=== PATIENT | female | born 1950 | race Caucasian/White ===

== ENCOUNTER 2019-04-24 20:41 | Inpatient (IN) | payer MEDICARE, OTHER, SELFPAY ==
[2019-04-24] VITALS (11 sets, daily range): BP systolic 132–156; BP diastolic 67–87; PULSE 70–94; RESP 17–28; TEMP 36.6–36.8; O2SAT 96–100
--- NOTE | 2019-04-24 20:46 | ED.GENADULT ---
HPI - General Adult General Chief complaint: GI Bleed Stated complaint: rectal bleed Time Seen by Provider: 04/24/19 20:51 Source: patient Mode of arrival: EMS Limitations: no limitations History of Present Illness HPI narrative: A 69 y/o female presents to the ED, via EMS, with c/o rectal bleeding. Pt states that she had a colonoscopy today at [address] Puente. She adds that she had 12 polyps removed during the procedure. Pt notes that after her colonoscopy she ate lunch and took a 6 hour nap. When the patient woke up tonight, she went to go to the bathroom and noticed she had filled her depends with blood and left a trail from her bed to her toilet. She states that there was approximately 50 tablespoons of blood on the floor. Pt has a PMHx of COPD and home O2. She denies ABD pain, fever, chills, and N/V. Pt did not take any medication prior to her ED visit. MD complaint: Rectal bleeding Onset (ago): hour(s) (Tonight) Associated symptoms: denies other symptoms Treatments prior to arrival: none Related Data Home Medications Medication Instructions Recorded Confirmed nicotine 10 mg inhalation cartridge 1 inhalation INHALATION 4-6XD PRN 02/20/19 04/24/19 tramadol 50 mg tablet 50 mg PO TID PRN tablet 02/20/19 04/18/19 escitalopram oxalate 20 mg PO DAILY 04/18/19 04/18/19 fluticasone propionate 2 spray NASAL DAILY 04/18/19 04/18/19 [id number]-[id number] 1 inh INHALATION DAILY 04/18/19 04/18/19 [Trelegy Ellipta] Allergies Allergy/AdvReac Type Severity Reaction Status Date / Time naproxen Allergy Severe can't take Verified 04/24/19 07:14 due to medical condition aspirin Allergy Unknown due to Verified 04/24/19 07:14 medical condition venlafaxine Allergy Unknown unknown Verified 04/24/19 07:14 Review of Systems Review of Systems: All systems reviewed & are unremarkable except as noted in HPI and below Constitutional: Constitutional: Denies chills and Denies fever(s) Gastrointestinal: Gastrointestinal: Denies abdominal pain, Denies nausea, Denies vomiting and Reports other (Rectal bleeding) [facility] Past Medical History Medical History (Updated 04/24/19 @ 22:51 by Clemente Braxton MD) Acquired hypothyroidism Adenomatous colon polyp Allergic rhinitis Chronic diastolic congestive heart failure Chronic hypoxemic respiratory failure Chronic obstructive pulmonary disease, unspecified Chronic respiratory failure with hypercapnia Chronic respiratory failure with hypoxia Compliance poor Constipation by delayed colonic transit Difficulty in walking, not elsewhere classified Diverticulitis SAKSHI (generalized anxiety disorder) History of tobacco abuse IFG (impaired fasting glucose) MDD (major depressive disorder), recurrent episode, moderate Mixed hyperlipidemia Morbid (severe) obesity due to excess calories Obstructive sleep apnea (adult) (pediatric) Physical debility Supplemental oxygen dependent Urge incontinence of urine Vascular dementia without behavioral disturbance Surgical History Surgical History (Updated 04/24/19 @ 22:51 by Clemente Braxton MD) History of arthroplasty of left knee History of colonoscopy History of rectal polypectomy Family History Family History Mother Family history of premature coronary heart disease, Onset Age: 79 Patient's mother is Family history of emphysema Father Family history of premature coronary heart disease, Onset Age: 79 Family history of diabetes mellitus in first degree relative Patient's father is Sibling Family history of cardiac disorder Other Asthma Depression Diabetes mellitus Family history of alcoholism Family history of heart disease in male family member before age 55 Family history of malignant melanoma Hypertension Social History Social History Smoking status: Former smoker [facility]
[2019-04-24 21:25] LABS: Basophils Absolute Auto 0.1 K/mm3 (0.0-0.1); Basophils Percent Auto 0.7 % (0.2-1.2); Eosinophils Absolute Auto 0.1 K/mm3 (0-0.3); Eosinophils Percent Auto 1.5 % (0-4.4); Hematocrit 47.5 % (37.0-47.0); Immature Granulocyte Absolute 0.02 K/mm3 (0.00-0.031); Immature Granulocyte Percent A 0.3 % (0-0.5); Lymphocytes Absolute Auto 1.02 K/mm3 (0.9-3.2); Lymphocytes Percent Auto 13.7 % (18.3-44.2); Mean Corpuscular HGB Conc 29.5 g/dl (32-36); Mean Corpuscular Hemoglobin 26.4 pg (26-34); Mean Corpuscular Volume 89.6 fl (80-100); Mean Platelet Volume 10.1 fl (7.4-10.4); Monocytes Absolute Auto 0.3 K/mm3 (0.1-0.6); Monocytes Percent Auto 3.5 % (2.6-8.5); Neutrophils Percent Auto 80.3 % (45.5-73.1); Platelet Count Result 280 k/mm3 (150-375); Red Cell Distribution Width 13.9 % (11.5-14.5); White Blood Count 7.4 K/mm3 (4.5-10.0)
[2019-04-24 21:33] LABS: Hypochromasia 1+ (NORMAL); Platelet Estimate Adequate (Adequate)
[2019-04-24 21:37] LABS: Alanine Aminotransferase 22 U/L (4-35); Albumin Level 4.7 g/dL (3.5-5.1); Alkaline Phosphatase 116 U/L (38-126); Aspartate Amino Transferase 35 U/L (14-36); Bilirubin,Total 0.5 mg/dL (0.2-1.3); Blood Urea Nitrogen 13 mg/dL (7-17); Calcium 9.4 mg/dL (8.4-10.2); Carbon Dioxide 37 mmol/L (22-30); Chloride 93 mmol/L (98-107); Estimated CRCL calculation 47 ml/min; Estimated Glomerular Filt Rate 50; Glucose 140 mg/dL (65-105); Potassium 3.6 mmol/L (3.4-5.0); Sodium 138 mmol/L (137-145)
[2019-04-24] MEDS: SODIUM CHLORIDE 0.9% IV 1,000 ML 999 ML IV CONT (21:50)
--- NOTE | 2019-04-24 23:00 | ADMGEN ---
This patient, Candida Luz, was admitted to Medical Room 345-. Patient/family oriented to hospital policies and general routines including ID bracelet, bed and alarms, visiting hours, pain management, procedures, bathroom and other care routines, personal items, smoking policy, room service/diet, and visiting hours. Valuables list has been completed. Information on how to activate the Rapid Response Team has been discussed. Patient/Family are encouraged to report perceived risks to care and to ask questions if they do not understand what they are told or what they should do.
[2019-04-24 23:37] LABS: Hematocrit 44.3 % (37.0-47.0); Hemoglobin 13.1 g/dL (12.0-15.0)
--- NOTE | 2019-04-24 23:37 | PM.IMHP ---
H&P: HPI History of Present Illness Chief complaint: RECTAL BLEEDING STATUS POST COLONIC POLYPECTOMY Narrative: This is a 69 year old female with known COPD and chronic respiratory failure on home oxygen therapy who presented to the hospital [facility] with a complaint of bright red rectal bleeding. The patient just had a colonoscopy this morning and had 12 polyps removed. Immediately after the procedure she had no issues and went home. She took a nap and woke up and immediately had painless bright red rectal bleeding. She denies using any anticoagulants. She also denies any chest pain, worsening shortness of breath, lightheadedness, syncope, or other symptoms. She denies any fever or chills. She had not had any abdominal discomfort. The patient was evaluated in the ER [facility] and routine labs were obtained which were unremarkable. Her rectal bleeding has subsided and she is currently asymptomatic. The patient's vital signs have been stable. ER provider consulted the patient's lambskin trimmer, Dr. Puente who has asked that we admit his patient for observation overnight. No other complaints. Review of Systems Review of Systems: All systems reviewed & are unremarkable except as noted in HPI and below PMFSH Past Medical History Medical History Acquired hypothyroidism Adenomatous colon polyp Allergic rhinitis Chronic diastolic congestive heart failure Chronic hypoxemic respiratory failure Chronic obstructive pulmonary disease, unspecified Chronic respiratory failure with hypercapnia Chronic respiratory failure with hypoxia Compliance poor Constipation by delayed colonic transit Difficulty in walking, not elsewhere classified Diverticulitis SAKSHI (generalized anxiety disorder) History of tobacco abuse IFG (impaired fasting glucose) MDD (major depressive disorder), recurrent episode, moderate Mixed hyperlipidemia Morbid (severe) obesity due to excess calories Obstructive sleep apnea (adult) (pediatric) Physical debility Supplemental oxygen dependent Urge incontinence of urine Vascular dementia without behavioral disturbance Surgical History Surgical History History of arthroplasty of left knee History of colonoscopy History of rectal polypectomy Family History Family History Mother Family history of premature coronary heart disease, Onset Age: 79 Patient's mother is Family history of emphysema Father Family history of premature coronary heart disease, Onset Age: 79 Family history of diabetes mellitus in first degree relative Patient's father is Sibling Family history of cardiac disorder Other Asthma Depression Diabetes mellitus Family history of alcoholism Family history of heart disease in male family member before age 55 Family history of malignant melanoma Hypertension Social History Social History Smoking status: Former smoker Second hand tobacco smoke exposure: No Smoking end date: 04/04/11 Alcohol intake: never Substance use: never Substance use type: does not use Gender identity (if verbalized by the patient): Female Meds Home Medications and Allergies Home Medications Medication Instructions Recorded Confirmed Type albuterol sulfate 90 mcg/actuation 2 puff INHALATION Q4H PRN #8.5 gm 02/20/19 04/24/19 Rx aerosol inhaler atorvastatin 10 mg tablet 10 mg PO DAILY #90 tablet 02/20/19 04/24/19 Rx furosemide 20 mg tablet 20 mg PO BID #180 tablet 02/20/19 04/18/19 Rx levothyroxine 150 mcg tablet 150 mcg PO DAILY #90 tablet 02/20/19 04/18/19 Rx nicotine 10 mg inhalation cartridge 1 inhalation INHALATION 4-6XD PRN 02/20/19 04/24/19 History potassium chloride 20 mEq 20 meq PO QID #360 tablet 02/20/19 04/18/19 Rx tablet,extended release(p
[2019-04-25] VITALS (12 sets, daily range): BP systolic 132–163; BP diastolic 67–78; PULSE 62–79; RESP 16–20; TEMP 36.1–36.4; O2SAT 97–100; BMI 39.6
[2019-04-25] MEDS: LACTATED RINGERS 1,000 ML 125 ML IV CONT ×3 (00:29→17:55)
[2019-04-25 06:12] LABS: Basophils Percent Auto 0.6 % (0.2-1.2); Eosinophils Absolute Auto 0.1 K/mm3 (0-0.3); Eosinophils Percent Auto 1.8 % (0-4.4); Hematocrit 39.7 % (37.0-47.0); Hemoglobin 11.7 g/dL (12.0-15.0); Immature Granulocyte Absolute 0.02 K/mm3 (0.00-0.031); Immature Granulocyte Percent A 0.3 % (0-0.5); Lymphocytes Absolute Auto 1.26 K/mm3 (0.9-3.2); Lymphocytes Percent Auto 18.7 % (18.3-44.2); Mean Corpuscular HGB Conc 29.5 g/dl (32-36); Mean Corpuscular Hemoglobin 26.6 pg (26-34); Mean Corpuscular Volume 90.2 fl (80-100); Mean Platelet Volume 10.2 fl (7.4-10.4); Monocytes Absolute Auto 0.4 K/mm3 (0.1-0.6); Monocytes Percent Auto 5.5 % (2.6-8.5); Neutrophils Absolute Auto 4.9 K/mm3 (1.3-6.7); Neutrophils Percent Auto 73.1 % (45.5-73.1); Platelet Count Result 227 k/mm3 (150-375); Red Cell Distribution Width 13.9 % (11.5-14.5); White Blood Count 6.8 K/mm3 (4.5-10.0)
[2019-04-25 06:28] LABS: Blood Urea Nitrogen 11 mg/dL (7-17); Calcium 8.6 mg/dL (8.4-10.2); Carbon Dioxide 32 mmol/L (22-30); Chloride 101 mmol/L (98-107); Estimated CRCL calculation 53 ml/min; Estimated Glomerular Filt Rate 55; Glucose 86 mg/dL (65-105); Potassium 3.7 mmol/L (3.4-5.0); Sodium 140 mmol/L (137-145)
[2019-04-25] MEDS: LEVOTHYROXINE SODIUM 150 MCG TABLET PO (06:55)
[2019-04-25 07:15] LABS: Hypochromasia 2+ (NORMAL); Platelet Estimate Adequate (Adequate)
[2019-04-25] MEDS: ESCITALOPRAM OXALATE 5 MG TABLET PO (08:44)
[2019-04-25] MEDS: POTASSIUM CHLORIDE 20 MEQ TABLET.ER PO ×4 (08:44→20:00)
[2019-04-25] MEDS: ATORVASTATIN 10 MG TABLET PO (08:44)
[2019-04-25] MEDS: ESCITALOPRAM OXALATE 10 MG TABLET PO (08:44)
[2019-04-25] MEDS: MONTELUKAST SODIUM 10 MG TABLET PO (08:45)
[2019-04-25] MEDS: FUROSEMIDE 20 MG TABLET PO ×2 (08:45→16:27)
[2019-04-25] MEDS: FLUTICASONE PROPIONATE 0.05% NA SPR 16 GM BTL (*BKC) 2 SPRAY NASAL (08:45)
[2019-04-25 11:27] LABS: Hematocrit 38.2 % (37.0-47.0); Hemoglobin 11.4 g/dL (12.0-15.0)
[2019-04-25 13:14] LABS: Glucose Point of Care 110 (65-105)
--- NOTE | 2019-04-25 14:53 | WPDGICN ---
Assessment and Plan Assessment and plan (1) Bright red rectal bleeding: Code(s): K62.5 - Hemorrhage of anus and rectum Status: Acute Assessment and Plan: post-polypectomy bleeding after several polyps removed yesterday with drop in hb. No more bleeding last few hours, will monitor in the hospital with npo after midnight, also give dulcolax with mag citrate tomorrow in the morning- if no significant bleeding then no need to repeat colonoscopy and will continue with supportive care but if she has more clots and ongoing bleeding with worsening anemia then may need to proceed with colonoscopy tomorrow to assess for potential site of bleeding. (2) Status post colonoscopy with polypectomy: Code(s): Z98.890 - Other specified postprocedural states Status: Acute (3) Adenomatous colon polyp: Qualifiers: Colon location: unspecified part of colon Qualified Code(s): D12.6 - Benign neoplasm of colon, unspecified Code(s): D12.6 - Benign neoplasm of colon, unspecified Status: Acute (4) Chronic respiratory failure with hypoxia: Code(s): J96.11 - Chronic respiratory failure with hypoxia Status: Chronic Assessment and Plan: on oxygen, stable. (5) Obstructive sleep apnea (adult) (pediatric): Code(s): G47.33 - Obstructive sleep apnea (adult) (pediatric) Status: Acute (6) Acute blood loss anemia: Code(s): D62 - Acute posthemorrhagic anemia Status: Acute GI Consult Note Consult date/time: 04/25/19 14:53 re: rectal bleeding HPI: Candida Luz is a 69 year old female with history of COPD, chronic respiratory failure on home oxygen, diverticulitis who came with rectal bleeding. I performed yesterday a colonoscopy, found left side diverticulosis without inflammation and removed 12 adenomatous polyps, ranging in size 5-20mm using hot snare for the largest ones (I use eleview in one flat polyp for the purpose of lifting and prevent perforation), did not see any immediate bleeding and she went home after recovery. Last night she had 2 episodes of large amount of rectal bleeding, no abdominal pain, no fever therefore she came to ED and admitted to hospital. Hb 13.1 and this morning 11.4. She is hemodynamic stable, no more bleeding today. Review of Systems Constitutional: Constitutional: Denies headache(s) and Denies weakness Eyes: Eyes: Denies blurry vision ENT: Reports Normal hearing present, Denies headache(s) and Denies neck pain Cardiovascular: Cardiovascular: Denies chest pain and Denies dyspnea Respiratory: Respiratory: Reports dyspnea (home oxygen) Gastrointestinal: Gastrointestinal: Reports no additional gastrointestinal complaints Genitourinary: Genitourinary: Denies dysuria Musculoskeletal: Musculoskeletal: Denies neck pain Integumentary/Breasts: Skin/Breast: Denies dry skin Neurologic: Reports Normal hearing present, Denies headache(s) and Denies weakness Psychiatric: Psychiatric: Denies anxiety Endocrine: Endocrine: Denies change in body appearance Hematologic/Lymphatic: Hematologic/Lymphatic: Denies easy bleeding Allergic/Immunologic: Allergic/Immunologic: Denies urticaria PMFSH Past Medical History Medical History Acquired hypothyroidism Adenomatous colon polyp Allergic rhinitis Chronic diastolic congestive heart failure Chronic hypoxemic respiratory failure Chronic obstructive pulmonary disease, unspecified Chronic respiratory failure with hypercapnia Chronic respiratory failure with hypoxia Compliance poor Constipation by delayed colonic transit Difficulty in walking, not elsewhere classified Diverticulitis SAKSHI (generalized anxiety disorder) History of tobacco abuse IFG (impaired fasting glucose) MDD (major depressive disorder), recurrent episode, moderate Mixed hyperlipidemia Morbid (severe) obesity due to excess calories Obstructive sleep apnea (adult) (pediatric)
[2019-04-25 17:17] LABS: Hematocrit 40.6 % (37.0-47.0); Hemoglobin 12.1 g/dL (12.0-15.0)
[2019-04-25] MEDS: BISACODYL 5 MG TABLET EC 20 MG PO (17:56)
--- NOTE | 2019-04-25 18:52 | PHAR ---
Nicotrol Inhaler (nicotine inhalation system) 10 mg/cartridge (4 mg delivered) Saw in Pharmacy and sent back to the floor.
--- NOTE | 2019-04-25 20:15 | PM.IMPN ---
Progress Note: A&P Assessment and Plan (1) Bright red rectal bleeding: Code(s): K62.5 - Hemorrhage of anus and rectum Status: Acute Assessment and Plan: -----Hgb is stable and bleeding has stopped. Plan to monitor overnight and hopefully discharge in the morning if stable. (2) Status post colonoscopy with polypectomy: Code(s): Z98.890 - Other specified postprocedural states Status: Acute Assessment and Plan: -----procedure 04/25/19 and pt is doing well. (3) Chronic respiratory failure with hypoxia: Code(s): J96.11 - Chronic respiratory failure with hypoxia Status: Chronic Assessment and Plan: -----Continue home oxygen therapy, bronchodilators and Bipap. (4) Mixed hyperlipidemia: Code(s): E78.2 - Mixed hyperlipidemia Status: Chronic Assessment and Plan: ------Continue statin therapy. (5) Chronic diastolic congestive heart failure: Code(s): I50.32 - Chronic diastolic (congestive) heart failure Status: Chronic Assessment and Plan: -----Currently compensated. Monitor fluid status. Continue home meds. (6) Acquired hypothyroidism: Code(s): E03.9 - Hypothyroidism, unspecified Status: Chronic Assessment and Plan: -----Continue levothyroxine. Time Spent With Patient Time with patient: 25 - 35 minutes Subjective Date/time seen: 04/25/19 20:15 Interval history: Pt is a 69 y/o female here for BRBPR. Pt had a BM today which had black flakes but no significant blood. she is feeling a little shaking but thinks its because she hasn't eaten for awhile since her colonoscopy. She denies CP, lightheadedness, fevers, chills, abdominal pain, or leg swelling. Review of Systems Review of Systems: All systems reviewed & are unremarkable except as noted in HPI and below Exam Narrative: Exam Narrative: General: Well developed well nourished patient resting in the chair in NAD HEENT: normocephalic Neck: supple Neuro: Alert and oriented x4 CV:RRR Resp:CTA Abd: Soft, non distended. No pain to palpation. Positive bowel sounds Extremities: No swelling, erythema, or pain to palpation. Objective Data Vital Signs Vital Signs: Vital Signs - 24 hr 04/24/19 20:45 04/24/19 22:22 04/24/19 22:30 Temperature 98.3 F Pulse Rate 94 79 77 Respiratory Rate 18 19 21 H Blood Pressure 156/87 H Pulse Oximetry 96 04/24/19 22:45 04/24/19 22:46 04/24/19 23:00 Temperature Pulse Rate 71 70 73 Respiratory Rate 25 H 18 19 Blood Pressure 132/67 Pulse Oximetry 100 100 98 04/24/19 23:15 04/24/19 23:30 04/24/19 23:33 Temperature Pulse Rate 78 86 77 Respiratory Rate 27 H 17 25 H Blood Pressure 144/75 H Pulse Oximetry 100 100 100 04/24/19 23:45 04/24/19 23:53 04/25/19 00:12 Temperature 97.9 F 97.1 F L Pulse Rate 71 76 73 Respiratory Rate 28 H 25 H 20 Blood Pressure 144/75 H 163/68 H Pulse Oximetry 100 100 99 04/25/19 00:58 04/25/19 04:00 04/25/19 06:00 Temperature 97.0 F L Pulse Rate 74 62 72 Respiratory Rate 18 Blood Pressure 149/67 H Pulse Oximetry 99 04/25/19 08:00 04/25/19 09:00 04/25/19 12:00 Temperature Pulse Rate 73 67 Respiratory Rate Blood Pressure Pulse Oximetry 97 04/25/19 14:00 04/25/19 16:00 Temperature 97.6 F Pulse Rate 74 76 Respiratory Rate 20 Blood Pressure 132/78 Pulse Oximetry 98 Intake/Output Intake/Output: Intake & Output 04/22/19 04/23/19 04/24/19 04/25/19 23:59 23:59 23:59 23:59 Intake Total 1000 3090 Output Total 1200 Balance 1000 1890 Meds/Results Medications: Active Medications Generic Name Dose Route Start Last Admin Trade Name Freq PRN Reason Stop Dose Admin Albuterol 2 puff 04/25/19 01:25 Proventil Hfa INHALATION Q4HRT PRN SOB/wheeze Atorvastatin Calcium 10 mg 04/25/19 09:00 04/25/19 08:44 Lipitor PO 10 mg DAILY AKIL Administ
[2019-04-26] VITALS: PULSE 94
[2019-04-26] MEDS: LACTATED RINGERS 1,000 ML 125 ML IV CONT (02:06)
[2019-04-26 04:00] VITALS: PULSE 57
[2019-04-26] MEDS: MAGNESIUM CITRATE 300 ML BTL PO (04:46)
[2019-04-26 06:00] VITALS: BP 127/72; PULSE 89; RESP 18; TEMP 36.2; O2SAT 100
[2019-04-26] MEDS: LEVOTHYROXINE SODIUM 150 MCG TABLET PO (06:13)
[2019-04-26 06:17] LABS: Hematocrit 47.5 % (37.0-47.0); Hemoglobin 13.9 g/dL (12.0-15.0)
[2019-04-26 07:55] VITALS: O2SAT 99
[2019-04-26 08:00] VITALS: PULSE 90
[2019-04-26] MEDS: FLUTICASONE PROPIONATE 0.05% NA SPR 16 GM BTL (*BKC) 2 SPRAY NASAL (08:39)
[2019-04-26] MEDS: MONTELUKAST SODIUM 10 MG TABLET PO (08:39)
--- NOTE | 2019-04-26 08:39 | WPDGIPROGNO ---
Progress Note: A&P Assessment and Plan (1) Bright red rectal bleeding: Code(s): K62.5 - Hemorrhage of anus and rectum Status: Acute Assessment and Plan: had a BM wihout more blood and normal Hb. Ok to start regular diet and she can go home. (2) Status post colonoscopy with polypectomy: Code(s): Z98.890 - Other specified postprocedural states Status: Acute Assessment and Plan: she will need colonoscopy in 1 year because several large polyps found. (3) Constipation by delayed colonic transit: Code(s): K59.01 - Slow transit constipation Status: Acute (4) Adenomatous colon polyp: Qualifiers: Colon location: unspecified part of colon Qualified Code(s): D12.6 - Benign neoplasm of colon, unspecified Code(s): D12.6 - Benign neoplasm of colon, unspecified Status: Acute (5) Chronic respiratory failure with hypoxia: Code(s): J96.11 - Chronic respiratory failure with hypoxia Status: Chronic Subjective Date/time seen: 04/26/19 08:39 Interval history: no more bleeding, had a BM after given Mag citrate. Also normal Hb Review of Systems Constitutional: Constitutional: Denies headache(s) and Denies weakness Eyes: Eyes: Denies blurry vision ENT: Reports Normal hearing present, Denies headache(s) and Denies neck pain Cardiovascular: Cardiovascular: Denies chest pain and Denies dyspnea Respiratory: Respiratory: Denies dyspnea Gastrointestinal: Gastrointestinal: Reports no additional gastrointestinal complaints Genitourinary: Genitourinary: Denies dysuria Musculoskeletal: Musculoskeletal: Denies neck pain Integumentary/Breasts: Skin/Breast: Denies dry skin Neurologic: Reports Normal hearing present, Denies headache(s) and Denies weakness Psychiatric: Psychiatric: Denies anxiety Endocrine: Endocrine: Denies change in body appearance Hematologic/Lymphatic: Hematologic/Lymphatic: Denies easy bleeding Allergic/Immunologic: Allergic/Immunologic: Denies urticaria Exam Const: General: comfortable and no acute distress HENMT: General nose exam: Normal nares present Eyes: General: appearance normal, both eyes and all related structures Neck: Neck: no JVD Resp: Auscultation: clear to auscultation bilaterally Other: using oxygen Cardio: Rate: regular rate Rhythm: regular rhythm GI: Inspection: non-distended GI Palp: Yes Soft to palpation and No Tenderness to palpation present (GI) Auscultation: normal bowel sounds Other: umbilical hernia Skin: General skin exam: normal color Neuro: General: gait normal Speech: normal speech Extrem: General: normal to inspection Psych: Mental Status: mental status grossly normal Objective Data Vital Signs Vital Signs: Vital Signs - 24 hr 04/25/19 09:00 04/25/19 12:00 04/25/19 14:00 Temperature 97.6 F Pulse Rate 67 74 Respiratory Rate 20 Blood Pressure 132/78 Pulse Oximetry 97 98 04/25/19 16:00 04/25/19 20:00 04/25/19 22:00 Temperature 97.0 F L Pulse Rate 76 79 64 Respiratory Rate 16 Blood Pressure 153/72 H Pulse Oximetry 100 04/25/19 23:05 04/26/19 00:00 04/26/19 04:00 Temperature Pulse Rate 94 57 L Respiratory Rate Blood Pressure Pulse Oximetry 97 04/26/19 06:00 04/26/19 07:55 04/26/19 08:00 Temperature 97.1 F L Pulse Rate 89 90 Respiratory Rate 18 Blood Pressure 127/72 Pulse Oximetry 100 99 Intake/Output Intake/Output: Intake & Output 04/23/19 04/24/19 04/25/19 04/26/19 23:59 23:59 23:59 23:59 Intake Total 1000 3090 1703 Output Total 1200 Balance 1000 1890 1703 Meds/Results Medications: Active Medications Generic Name Dose Route Start Last Admin Trade Name Freq PRN Reason Stop Dose Admin Albuterol 2 puff 04/25/19 01:25 Proventil Hfa INHALATION Q4HRT PRN SOB/wheeze Atorvastatin Calcium 10 mg 04/25/19 09:00 04/25/19 08:44 Lipitor PO 10 mg DAILY AKIL Adminis
[2019-04-26] MEDS: ATORVASTATIN 10 MG TABLET PO (08:40)
[2019-04-26] MEDS: POTASSIUM CHLORIDE 20 MEQ TABLET.ER PO (08:40)
[2019-04-26] MEDS: ESCITALOPRAM OXALATE 5 MG TABLET PO (08:40)
[2019-04-26] MEDS: FUROSEMIDE 20 MG TABLET PO (08:40)
[2019-04-26] MEDS: ESCITALOPRAM OXALATE 10 MG TABLET PO (08:40)
--- NOTE | 2019-04-26 10:22 | PM.DS ---
DS: Diagnosis Admitting Diagnosis Admitting Diagnosis: Hemorrhage of anus and rectum Discharge Diagnosis (1) Bright red rectal bleeding: Code(s): K62.5 - Hemorrhage of anus and rectum Status: Acute (2) Status post colonoscopy with polypectomy: Code(s): Z98.890 - Other specified postprocedural states Status: Acute (3) Chronic respiratory failure with hypoxia: Code(s): J96.11 - Chronic respiratory failure with hypoxia Status: Chronic (4) Mixed hyperlipidemia: Code(s): E78.2 - Mixed hyperlipidemia Status: Chronic (5) Chronic diastolic congestive heart failure: Code(s): I50.32 - Chronic diastolic (congestive) heart failure Status: Chronic (6) Acquired hypothyroidism: Code(s): E03.9 - Hypothyroidism, unspecified Status: Chronic DS: Summary Hospital Course Reason for hospitalization: Blood per rectum post colonoscopy Hospital Course: Patient is a 69-year-old female who had an outpatient colonoscopy without any complications but did have many polyps removed. She left from a colonoscopy and went home and was having some blood per rectum and decided to come back to emergency room. Vitals in the ER were stable. Initial hemoglobin 14.0. Patient was admitted to the hospitalist service for observation. The next day she had some blood per rectum but serial H&Hs remained stable. Hemoglobin was 13.9 and she did not require any blood products. She saw Dr. Puente, the 1 who did her colonoscopy, and he said she was ready for discharge. The patient was educated about the worrisome signs and symptoms come back to emergency room for was discharged in stable condition. Status at Discharge Overall status at discharge: patient is back to baseline Time Spent with Patient Time attestation: Total time spent providing and/or coordinating discharge services: 32 minutes Time spent: Greater than 30 minutes Exam Narrative: Exam Narrative: General: Well developed well nourished patient resting in the chair in NAD HEENT: normocephalic Neck: supple Neuro: Alert and oriented x4 CV:RRR Resp:CTA Abd: Soft, non distended. No pain to palpation. Positive bowel sounds Extremities: No swelling, erythema, or pain to palpation. DS: Data Data Completed and Pending Labs on day of discharge: Labs from last 24 hours 04/26/19 04/25/19 04/25/19 06:02 17:10 13:12 Hgb 13.9 12.1 Hct 47.5 H 40.6 POC Capillary Glucose 110 04/25/19 11:17 Hgb 11.4 L Hct 38.2 POC Capillary Glucose Discharge Plan Discharge Attending physician on discharge: Coy Porter Consulting providers: Ramsey aBires Discharging Clinician: Hannah Ontiveros Patient Disposition: Home, Self-Care Activity: as tolerated Diet: low sodium Discharge Instructions: -follow up with your Dr. Jeff as needed -Worrisome signs and symptoms to come back to the ER for: fevers 100.4 or greater, chest pain, shortness of breath, passing out, worsening blood per rectum or any other worrisome symptom. Patient Instructions: Rectal Bleeding (DC), COPD (Chronic Obstructive Pulmonary Disease) (DC), Colorectal Polyps (DC) Stand Alone Forms: General Discharge Information Follow-up/Referrals: Ramsey Baires MD [Physician] - Call for Appointment Lesa Wilkins MD [Primary Care Provider] - Keep Reg. Scheduled Appt. Discharge Medications: Continued tramadol 50 mg tablet 50 mg PO TID PRN (Reason: Pain) RF: 0 Nicotrol 10 mg cartridge 1 inhalation INHALATION 4-6XD PRN (Reason: (Drug) Ingestion) RF: 0 albuterol sulfate [Proventil HFA] 90 mcg/actuation HFA aerosol inhaler 2 puff INHALATION Q4H PRN (Reason: SOB/wheeze) Qty: 8.5 RF: 1 atorvastatin [Lipitor] 10 mg tablet 10 mg PO DAILY Qty: 90 RF: 2 furosemide 20 mg tablet 20 mg PO BID Qty: 180 RF: 2 levothyroxine [Synthroid] 150 mcg tablet 150 mcg PO DAILY Qty:
== END 2019-04-26 11:50 | disposition home or self-care (01) | DRG 920 ==
LOC: ANHED 22:51 → ANH3MED 23:16
PROVIDERS: Physician Assistant; Admitting Provider Family Medicine; Emergency Provider Emergency Medicine; PCP Family Medicine; Visit Provider Internal Medicine
DX: K91.840 Postprocedural hemorrhage of a digestive system organ or structure following a digestive system procedure (principal); J96.11 Chronic respiratory failure with hypoxia; J96.12 Chronic respiratory failure with hypercapnia; D62 Acute posthemorrhagic anemia; I50.32 Chronic diastolic (congestive) heart failure; E78.2 Mixed hyperlipidemia; E03.9 Hypothyroidism, unspecified; F01.50 Vascular dementia, unspecified severity, without behavioral disturbance, psychotic disturbance, mood disturbance, and anxiety; J44.9 Chronic obstructive pulmonary disease, unspecified; F32.9 Major depressive disorder, single episode, unspecified; F41.1 Generalized anxiety disorder; G47.33 Obstructive sleep apnea (adult) (pediatric); K59.01 Slow transit constipation; R32 Unspecified urinary incontinence; E66.01 Morbid (severe) obesity due to excess calories; Z68.39 Body mass index [BMI] 39.0-39.9, adult; Z99.81 Dependence on supplemental oxygen; Z87.891 Personal history of nicotine dependence; Z96.652 Presence of left artificial knee joint
CPT/HCPCS: 36415; 80048; 80053; 85014; 85018; 85025; 86850; 86900; 86901; 88305; 96360; 96361; 99285; A9270; G0378; J2704; J7030; J7120

== ENCOUNTER 2019-12-11 14:21 | Outpatient (CLI) | payer MEDICARE, OTHER, SELFPAY ==
[2019-12-11 15:36] LABS: Hematocrit 42.6 % (37.0-47.0); Hemoglobin 12.5 g/dL (12.0-15.0); Mean Corpuscular HGB Conc 29.3 g/dl (32-36); Mean Corpuscular Hemoglobin 26.9 pg (26-34); Mean Corpuscular Volume 91.6 fl (80-100); Platelet Count Result 285 k/mm3 (150-375); Red Blood Count 4.65 M/mm3 (4.2-5.4); Red Cell Distribution Width 13.5 % (11.5-14.5); White Blood Count 6.9 K/mm3 (4.5-10.0)
[2019-12-11 15:40] LABS: Hemoglobin A1C 5.1 % (<5.7)
[2019-12-11 15:48] LABS: Alanine Aminotransferase 23 U/L (4-35); Albumin Level 4.2 g/dL (3.5-5.1); Alkaline Phosphatase 127 U/L (38-126); Anion Gap 7.99999 mmol/L (8-16); Aspartate Amino Transferase 24 U/L (14-36); Bilirubin,Total 0.5 mg/dL (0.2-1.3); Blood Urea Nitrogen 16 mg/dL (7-17); Calcium 9.1 mg/dL (8.4-10.2); Carbon Dioxide > 40 mmol/L (22-30); Chloride 92 mmol/L (98-107); Estimated Glomerular Filt Rate 38; Glucose 96 mg/dL (65-105); Potassium 4.3 mmol/L (3.4-5.0); Sodium 140 mmol/L (137-145)
[2019-12-11 16:15] LABS: Free T4 Free Thyroxine 0.85 ng/mL (0.78-2.19)
[2019-12-12 11:43] LABS: Add Urine Microscopic? YES; Amorphous Sediment Urine Few; Appearance Urine Turbid (Clear); Bacteria Urine Trace /hpf; Bilirubin Urine Negative (Negative); Blood Urine Negative (Negative); Color Urine Red (Yellow); Glucose Urine UA Negative (Negative); Ketones Urine Negative (Negative); Leukocyte Esterase Ur Negative LEU/UL (Negative); Mucus Urine Moderate /lpf; Nitrate Urine Negative (Negative); Protein Urine Negative (Negative); Specific Grav Ur 1.029 (1.001-1.035); Squamous Epithelial Cell Urine Few /hpf (Few); Urobilinogen Urine Negative mg/dL (<2.0); WBC Urine 0-3 /hpf
== END 2019-12-11 14:22 | disposition home or self-care (01) ==
PROVIDERS: PCP Family Medicine; Visit Provider Physician Assistant
DX: E78.2 Mixed hyperlipidemia (principal); I50.32 Chronic diastolic (congestive) heart failure; E03.9 Hypothyroidism, unspecified; R30.0 Dysuria; R73.01 Impaired fasting glucose
CPT/HCPCS: 36415; 80053; 81001; 83036; 84439; 84443; 85027

== ENCOUNTER 2019-12-12 11:22 | Outpatient (CLI) | payer MEDICARE, OTHER, SELFPAY ==
--- NOTE | ~2019-12-12 | XR_ITS ---
EXAMINATION: XR chest 2V 12/12/2019 12:00 INDICATION: Dyspnea. PROCEDURE: 2 view chest COMPARISON: Comparison to multiple prior studies sequentially, with oldest reviewed study dated 10/2005. FINDINGS: The lungs are clear. The lungs are hyperinflated which is consistent with, but not diagnost ic of chronic obstructive pulmonary disease. The cardiomediastinal silhouette is within normal limits . There are no pleural effusions. There is no pneumothorax suspected. IMPRESSION: 1: NO ACUTE CARDIOPULMONARY DISEASE. Reviewed, dictated and finalized at location A.
== END 2019-12-12 11:23 | disposition home or self-care (01) ==
PROVIDERS: PCP Family Medicine; Visit Provider Physician Assistant
DX: R05 Cough (principal); R06.00 Dyspnea, unspecified
CPT/HCPCS: 71046

== ENCOUNTER 2020-02-06 09:04 | Outpatient (CLI) | payer MEDICARE, OTHER, SELFPAY ==
[2020-02-06 09:51] LABS: Hemoglobin 12.9 g/dL (12.0-15.0); Mean Corpuscular HGB Conc 30.7 g/dl (32-36); Mean Corpuscular Hemoglobin 27.5 pg (26-34); Mean Corpuscular Volume 89.6 fl (80-100); Mean Platelet Volume 10.1 fl (7.4-10.4); Platelet Count Result 258 k/mm3 (150-375); Red Blood Count 4.69 M/mm3 (4.2-5.4); Red Cell Distribution Width 13.2 % (11.5-14.5); White Blood Count 6.4 K/mm3 (4.5-10.0)
[2020-02-06 10:01] LABS: Albumin Level 4.3 g/dL (3.5-5.1); Anion Gap 7 mmol/L (8-16); Blood Urea Nitrogen 17 mg/dL (7-17); Calcium 9.7 mg/dL (8.4-10.2); Carbon Dioxide 36 mmol/L (22-30); Chloride 98 mmol/L (98-107); Estimated Glomerular Filt Rate > 60; Glucose 122 mg/dL (65-105); Phosphorus 4.7 mg/dL (2.5-4.5); Potassium 4.4 mmol/L (3.4-5.0); Sodium 141 mmol/L (137-145)
[2020-02-06 10:08] LABS: Complement C3 132 mg/dL (88-165)
[2020-02-06 10:13] LABS: Parathyroid Intact 109.4 pg/mL (7.5-53.5)
[2020-02-06 13:46] LABS: Erythrocyte Sedimentation Rate 19 mm/hr (0-20)
[2020-02-09 14:33] LABS: Complement Total CH50 >60 U/mL (31-60)
[2020-02-09 21:30] LABS: Kappa\\Lambda Light Chains 1.45 (0.26-1.65)
== END 2020-02-06 09:05 | disposition home or self-care (01) ==
PROVIDERS: PCP Family Medicine; Referring Provider Family Medicine; Visit Provider Internal Medicine Nephrology
DX: N18.31 Chronic kidney disease, stage 3a (principal)
CPT/HCPCS: 36415; 80069; 83883; 83970; 85027; 85652; 86038; 86160; 86162; 86334

== ENCOUNTER 2020-02-07 11:24 | Outpatient (CLI) | payer MEDICARE, OTHER, SELFPAY ==
--- NOTE | ~2020-02-07 | US_ITS ---
EXAMINATION: US renal BI EXAM DATE: 02/07/2020 12:11 INDICATION: Chronic kidney disease. TECHNIQUE: Multiple grayscale and Doppler images of the kidneys were obtained (by a technologist who performed the scan) and subsequently reviewed. There is no prior study for comparison. FINDINGS: Right kidney: There is normal contour and echogenicity. It measures 9.7 x 3.7 x 3.7 centimeters. Th ere are no focal renal lesions identified. There is no hydronephrosis. Left kidney: There is normal contour and echogenicity. It measures 10.3 x 4.5 x 4.2 centimeters. The re is an 8 mm cyst. There is no hydronephrosis. Undistended, unremarkable bladder. IMPRESSION: Mild bilateral renal atrophy. Reviewed, dictated and finalized at location B. [facility]
== END 2020-02-07 11:25 | disposition home or self-care (01) ==
PROVIDERS: PCP Family Medicine; Visit Provider Internal Medicine Nephrology
DX: N18.31 Chronic kidney disease, stage 3a (principal)
CPT/HCPCS: 76775

== ENCOUNTER 2020-02-09 12:40 | Outpatient (NON) | payer MEDICARE, OTHER, SELFPAY ==
[2020-02-09 13:35] LABS: Add Urine Microscopic? NO; Appearance Urine Clear (Clear); Bilirubin Urine Negative (Negative); Blood Urine Negative (Negative); Color Urine Yellow (Yellow); Glucose Urine UA Negative (Negative); Ketones Urine Negative (Negative); Leukocyte Esterase Ur Negative LEU/UL (NEGATIVE); Nitrate Urine Negative (Negative); Protein Urine Negative (Negative); Specific Grav Ur 1.023 (1.001-1.035); Urobilinogen Urine Negative mg/dL (<2.0)
[2020-02-09 13:41] LABS: Creatinine Urine 153.5 mg/dL; Total Protein Urine Random 6 mg/dL
== END 2020-02-09 12:41 ==
PROVIDERS: PCP Family Medicine; Visit Provider Internal Medicine Nephrology
DX: N18.31 Chronic kidney disease, stage 3a (principal)
CPT/HCPCS: 81003; 82570; 84156; 86335

== ENCOUNTER 2020-05-15 10:40 | Outpatient (CLI) | payer MEDICARE, OTHER, SELFPAY ==
--- NOTE | ~2020-05-15 | CT_ITS ---
EXAMINATION: CT lung screening DATE: 05/15/2020 11:02 INDICATION: Personal history of tobacco dependence, prior smoker with 60 pack year history TECHNIQUE: Computed tomography (CT) of the chest was performed without intravenous contrast. The dose -length product (DLP) was 151.11 mGy-cm. Automated exposure control and iterative reconstruction tech Quick Key were employed. COMPARISON: 01/04/2019 FINDINGS: There is moderate emphysema. Stable lingular nodules measuring 7 mm and 9 mm are again note d. In addition, there are small, stable nodules scattered throughout the lungs. No new or suspicious pulmonary nodule is identified. There is no pleural effusion or pneumothorax. Calcified coronary halie ry atherosclerosis is noted. No pathologically enlarged thoracic lymph nodes are identified. The hear t size is normal. There is mild thoracic spondylosis. IMPRESSION: 1. Lung-RADS category 2: Benign appearance or behavior. Continue annual screening with noncontrast lo w-dose chest CT in 12 months. Reviewed, dictated and finalized at location A. [employer] IMPRESSION: 1. Lung-RADS category 2: Benign appearance or behavior. Continue annual screeni ng with noncontrast low-dose chest CT in 12 months.
== END 2020-05-15 10:41 | disposition home or self-care (01) ==
PROVIDERS: PCP Family Medicine; Visit Provider Nurse Practitioner Family
DX: Z12.2 Encounter for screening for malignant neoplasm of respiratory organs (principal); Z87.891 Personal history of nicotine dependence
CPT/HCPCS: 36415; 71271; 80069; 82570; 84156

== ENCOUNTER 2020-05-15 11:08 | Outpatient (CLI) | payer MEDICARE, OTHER, SELFPAY ==
[2020-05-15 12:35] LABS: Albumin Level 4.4 g/dL (3.5-5.1); Blood Urea Nitrogen 19 mg/dL (7-17); Calcium 9.7 mg/dL (8.4-10.2); Carbon Dioxide > 40 mmol/L (22-30); Chloride 98 mmol/L (98-107); Estimated Glomerular Filt Rate > 60; Glucose 111 mg/dL (65-105); Phosphorus 3.5 mg/dL (2.5-4.5); Potassium 4.2 mmol/L (3.4-5.0); Sodium 141 mmol/L (137-145)
[2020-05-15 17:20] LABS: Creatinine Urine 266.2 mg/dL; Total Protein Urine Random 7 mg/dL; Ur Ttl Prot Creatinine Ratio 0.03 mg/mg (0-0.20)
== END 2020-05-15 11:09 | disposition home or self-care (01) ==
PROVIDERS: PCP Family Medicine; Visit Provider Internal Medicine Nephrology
DX: N18.32 Chronic kidney disease, stage 3b (principal)
CPT/HCPCS: 36415; 80069; 82570; 84156

== ENCOUNTER 2020-06-17 09:35 | Outpatient (CLI) | payer MEDICARE, OTHER, SELFPAY ==
[2020-06-17 10:24] LABS: Albumin Level 4.3 g/dL (3.5-5.1); Anion Gap 7 mmol/L (8-16); Blood Urea Nitrogen 22 mg/dL (7-17); Calcium 9.2 mg/dL (8.4-10.2); Carbon Dioxide 34 mmol/L (22-30); Chloride 98 mmol/L (98-107); Estimated Glomerular Filt Rate 49; Glucose 105 mg/dL (65-105); Phosphorus 4.1 mg/dL (2.5-4.5); Potassium 4.3 mmol/L (3.4-5.0); Sodium 139 mmol/L (137-145)
== END 2020-06-17 09:36 | disposition home or self-care (01) ==
PROVIDERS: PCP Family Medicine; Visit Provider Internal Medicine Nephrology
DX: I10 Essential (primary) hypertension (principal); R94.4 Abnormal results of kidney function studies
CPT/HCPCS: 36415; 80069

== ENCOUNTER 2020-06-18 11:48 | Outpatient (NON) | payer MEDICARE, OTHER, SELFPAY ==
[2020-06-18 19:50] LABS: Creatinine Urine > 346.5 mg/dL
[2020-06-18 19:57] LABS: Total Protein Urine Random < 5 mg/dL
== END 2020-06-18 11:49 ==
LOC: ANHLAB 11:53
PROVIDERS: PCP Family Medicine; Referring Provider Family Medicine; Visit Provider Internal Medicine Nephrology
DX: R94.4 Abnormal results of kidney function studies (principal); I10 Essential (primary) hypertension
CPT/HCPCS: 82570; 84156

== ENCOUNTER → 2020-07-25 00:42 | Outpatient (CLI) | payer MEDICARE, OTHER, SELFPAY ==
[2020-07-25 21:02] LABS: SARS-CoV-2 RNA PCR Negative
== END ==
PROVIDERS: PCP Family Medicine; Visit Provider Internal Medicine Gastroenterology
DX: Z01.812 Encounter for preprocedural laboratory examination (principal); Z20.822 Contact with and (suspected) exposure to COVID-19
CPT/HCPCS: C9803; U0003; U0005

== ENCOUNTER 2020-07-28 01:29 | Day surgery (SDC) | payer MEDICARE, OTHER, SELFPAY ==
[2020-07-17 14:37] VITALS: BMI 35.9
[2020-07-28] MEDS: LACTATED RINGERS 1,000 ML 150 ML IV CONT (06:38)
[2020-07-28 06:45] VITALS: BP 157/78; PULSE 96; RESP 22; TEMP 36.3; O2SAT 99; BMI 34.7
--- NOTE | 2020-07-28 07:13 | WPDANESEPPF ---
Anes - Initial Pre Proc Eval Procedure: Operation Date: 07/28/20 07:30 Proposed Procedures p Screening Colonoscopy - Ramsey Baires MD Date/Time: 07/28/20 07:13 Surgeon: Ramsey Baires MD Pre Op Diagnosis: hx of colon polyps Patient Data Age: 70 Gender: F Height: 5 ft 2 in Weight: 86.2 kg Last Vital Signs Temp 97.3 F L 07/28/20 06:45 Pulse 96 07/28/20 06:45 Resp 22 H 07/28/20 06:45 BP 157/78 H 07/28/20 06:45 Pulse Ox 99 07/28/20 06:45 Allergies Allergy/AdvReac Type Severity Reaction Status Date / Time naproxen Allergy Severe can't take Verified 07/28/20 06:38 due to medical condition aspirin Allergy Unknown due to Verified 07/28/20 06:38 medical condition venlafaxine Allergy Unknown unknown Verified 07/28/20 06:38 Home Medications Medication Instructions Recorded Confirmed Type tramadol 50 mg tablet 50 mg PO TID PRN tablet 02/20/19 07/28/20 History montelukast 10 mg tablet 10 mg PO DAILY #90 tablet 05/17/19 07/28/20 Rx atorvastatin 10 mg tablet 10 mg PO DAILY #90 tablet 12/25/19 07/28/20 Rx furosemide 20 mg tablet 20 mg PO QAM 12/25/19 07/28/20 History azelastine 137 mcg (0.1 %) nasal 137 mcg INTRANASAL Q12H 90 Days 02/06/20 07/28/20 Rx spray aerosol #24.66 ml nicotine 10 mg inhalation cartridge 1 inh INHALATION 4-6XD PRN #168 ea 02/25/20 07/28/20 Rx levothyroxine 150 mcg tablet 150 mcg PO DAILY #90 tablet 05/08/20 07/28/20 Rx albuterol sulfate 90 mcg/actuation 2 puff INHALATION Q4H 90 Days #8.5 06/24/20 07/28/20 Rx aerosol inhaler gm escitalopram oxalate 20 mg tablet 20 mg PO DAILY #90 tablet 06/24/20 07/28/20 Rx nystatin-triamcinolone 100,000 1 applic TOPICAL BID #30 g 06/24/20 07/28/20 Rx unit/g-0.1 % topical cream spironolactone 25 mg tablet 25 mg PO DAILY #90 tablet 06/24/20 07/28/20 Rx codeine 10 mg-guaifenesin 100 mg/5 5 ml PO Q4-6H #237 ml 06/25/20 07/28/20 Rx mL oral liquid fluticasone fur. 100 mcg-umeclid 1 inh INHALATION Q24H 90 Days #180 07/21/20 07/28/20 Rx 62.5 mcg-vilant 25 mcg ea inhalat.powder fluconazole 150 mg tablet 150 mg PO WEEKLY #7 tablet 07/22/20 07/28/20 Rx Patient hx anesthesia problems: none Family hx anesthesia problems: none PMFSH Past Medical History Medical History Acquired hypothyroidism Acute blood loss anemia Adenomatous colon polyp Allergic rhinitis Benign essential HTN Chronic diastolic congestive heart failure Chronic hypoxemic respiratory failure Chronic obstructive pulmonary disease, unspecified Chronic respiratory failure with hypercapnia Chronic respiratory failure with hypoxia Compliance poor Constipation by delayed colonic transit Difficulty in walking, not elsewhere classified Diverticulitis SAKSHI (generalized anxiety disorder) History of fracture of patella History of tobacco abuse History of torn meniscus of right knee IFG (impaired fasting glucose) MDD (major depressive disorder), recurrent episode, moderate Mixed hyperlipidemia Morbid (severe) obesity due to excess calories Obstructive sleep apnea (adult) (pediatric) Other abnormalities of gait and mobility Physical debility Supplemental oxygen dependent Urge incontinence of urine Vascular dementia without behavioral disturbance Surgical History Surgical History History of arthroplasty of left knee History of colonoscopy History of eye surgery History of nasal surgery History of rectal polypectomy History of sinus surgery Family History Family History Mother Family history of premature coronary heart disease, Onset Age: 79 Patient's mother is Family history of emphysema Father Family history of premature coronary heart disease, Onset Age: 79 Family history of diabetes mellitus in first degree relative Patient's father is dece
--- NOTE | 2020-07-28 07:49 | PM.HPGS ---
History of Present Illness History of Present Illness Consent: Risks, benefits, and alternatives have been discussed and questions answered. Patient agrees to proceed with procedure. Chief complaint: hx of colon polyps Narrative: Candida Luz is a 70 year old female with several polyps removed 1 year ago Review of Systems Constitutional: Constitutional: Denies headache(s) and Denies weakness Eyes: Eyes: Denies blurry vision ENT: Reports Normal hearing present, Denies headache(s) and Denies neck pain Cardiovascular: Cardiovascular: Denies chest pain and Denies dyspnea Respiratory: Respiratory: Denies dyspnea Gastrointestinal: Gastrointestinal: Reports no additional gastrointestinal complaints Genitourinary: Genitourinary: Denies dysuria Musculoskeletal: Musculoskeletal: Denies neck pain Integumentary/Breasts: Skin/Breast: Denies dry skin Neurologic: Reports Normal hearing present, Denies headache(s) and Denies weakness Psychiatric: Psychiatric: Denies anxiety Endocrine: Endocrine: Denies change in body appearance Hematologic/Lymphatic: Hematologic/Lymphatic: Denies easy bleeding Allergic/Immunologic: Allergic/Immunologic: Denies urticaria PMFSH Past Medical History Medical History Acquired hypothyroidism Acute blood loss anemia Adenomatous colon polyp Allergic rhinitis Benign essential HTN Chronic diastolic congestive heart failure Chronic hypoxemic respiratory failure Chronic obstructive pulmonary disease, unspecified Chronic respiratory failure with hypercapnia Chronic respiratory failure with hypoxia Compliance poor Constipation by delayed colonic transit Difficulty in walking, not elsewhere classified Diverticulitis SAKSHI (generalized anxiety disorder) History of fracture of patella History of tobacco abuse History of torn meniscus of right knee IFG (impaired fasting glucose) MDD (major depressive disorder), recurrent episode, moderate Mixed hyperlipidemia Morbid (severe) obesity due to excess calories Obstructive sleep apnea (adult) (pediatric) Other abnormalities of gait and mobility Physical debility Supplemental oxygen dependent Urge incontinence of urine Vascular dementia without behavioral disturbance Surgical History Surgical History History of arthroplasty of left knee History of colonoscopy History of eye surgery History of nasal surgery History of rectal polypectomy History of sinus surgery Family History Family History Mother Family history of premature coronary heart disease, Onset Age: 79 Patient's mother is Family history of emphysema Father Family history of premature coronary heart disease, Onset Age: 79 Family history of diabetes mellitus in first degree relative Patient's father is Sibling Family history of cardiac disorder Other Asthma Depression Diabetes mellitus Family history of alcoholism Family history of heart disease in male family member before age 55 Family history of malignant melanoma Hypertension Social History Social History (Updated 07/22/20 @ 09:16 by Elyssa Kuhn) Social History: Smoking packs per day: 4 Smoking cigarettes per day: 80.0 Years smoked: 45 Smoking pack-years: 180.00 Smoking status: Former smoker Tobacco type: cigarettes Second hand tobacco smoke exposure: No Smoking end date: 04/04/11 Alcohol intake: never Substance use: never Substance use type: does not use Living arrangements: with family Gender identity (if verbalized by the patient): Female Spiritual care concerns: No Agree to blood products: No Meds Home Medications and Allergies Home Medications Medication Instructions Recorded Confirmed Type tramadol 50 mg tablet 50 mg PO TID PRN tablet 02/20/19 07/28/20 History m
[2020-07-28 07:55] VITALS: BP 147/77; PULSE 98; RESP 22; O2SAT 99
[2020-07-28 08:05] VITALS: BP 130/72; PULSE 95; RESP 22; O2SAT 99
[2020-07-28 08:15] VITALS: BP 128/56; PULSE 95; RESP 22; O2SAT 99
== END 2020-07-28 08:47 | disposition home or self-care (01) ==
PROVIDERS: PCP Family Medicine; Visit Provider Internal Medicine Gastroenterology
PROC: 0DJD8ZZ Inspection of Lower Intestinal Tract, Via Natural or Artificial Opening Endoscopic (ICD-10-PCS; CPT 45378; principal; 2020-07-28 07:30)
DX: Z12.11 Encounter for screening for malignant neoplasm of colon (principal); K63.5 Polyp of colon; K57.30 Diverticulosis of large intestine without perforation or abscess without bleeding; K64.8 Other hemorrhoids; I11.0 Hypertensive heart disease with heart failure; I50.32 Chronic diastolic (congestive) heart failure; E03.9 Hypothyroidism, unspecified; J96.11 Chronic respiratory failure with hypoxia; J96.12 Chronic respiratory failure with hypercapnia; J44.9 Chronic obstructive pulmonary disease, unspecified; F41.1 Generalized anxiety disorder; F33.1 Major depressive disorder, recurrent, moderate; E78.2 Mixed hyperlipidemia; G47.33 Obstructive sleep apnea (adult) (pediatric); Z99.81 Dependence on supplemental oxygen; N39.41 Urge incontinence; F03.90 Unspecified dementia, unspecified severity, without behavioral disturbance, psychotic disturbance, mood disturbance, and anxiety; E66.9 Obesity, unspecified; Z68.34 Body mass index [BMI] 34.0-34.9, adult; Z87.891 Personal history of nicotine dependence; Z79.51 Long term (current) use of inhaled steroids
CPT/HCPCS: 45385; 88305; J2704; J7120

== ENCOUNTER 2021-01-02 12:47 | Outpatient (CLI) | payer MEDICARE, OTHER, SELFPAY ==
[2021-01-02 13:39] LABS: Albumin Level 4.6 g/dL (3.5-5.1); Anion Gap 6 mmol/L (8-16); Blood Urea Nitrogen 13 mg/dL (7-17); Calcium 9.1 mg/dL (8.4-10.2); Carbon Dioxide 35 mmol/L (22-30); Chloride 98 mmol/L (98-107); Estimated Glomerular Filt Rate > 60; Glucose 98 mg/dL (65-110); Phosphorus 3.1 mg/dL (2.5-4.5); Potassium 4.2 mmol/L (3.4-5.0); Sodium 139 mmol/L (137-145)
== END 2021-01-02 12:48 | disposition home or self-care (01) ==
PROVIDERS: PCP Family Medicine; Visit Provider Internal Medicine Nephrology
DX: R94.4 Abnormal results of kidney function studies (principal); I10 Essential (primary) hypertension
CPT/HCPCS: 36415; 80069

== ENCOUNTER 2021-01-05 13:01 | Outpatient (NON) | payer MEDICARE, OTHER, SELFPAY ==
[2021-01-05 15:04] LABS: Creatinine Urine 191.2 mg/dL
[2021-01-05 15:10] LABS: Total Protein Urine Random < 5 mg/dL; Ur Ttl Prot Creatinine Ratio < 0.03 mg/mg (0-0.20)
== END 2021-01-05 13:02 | disposition home or self-care (01) ==
PROVIDERS: PCP Family Medicine; Visit Provider Internal Medicine Nephrology
DX: R94.4 Abnormal results of kidney function studies (principal); I10 Essential (primary) hypertension
CPT/HCPCS: 82570; 84156

== ENCOUNTER 2021-12-24 11:03 | Outpatient (CLI) | payer MEDICARE, OTHER, SELFPAY ==
[2021-12-24 11:55] LABS: Basophils Percent Auto 0.4 % (0.2-1.2); Eosinophils Absolute Auto 0.1 K/mm3 (0-0.3); Eosinophils Percent Auto 1.5 % (0-4.4); Hematocrit 42.3 % (37.0-47.0); Hemoglobin 12.2 g/dL (12.0-15.0); Immature Granulocyte Absolute 0.02 K/mm3 (0.00-0.031); Immature Granulocyte Percent A 0.3 % (0-0.5); Lymphocytes Absolute Auto 0.91 K/mm3 (0.9-3.2); Lymphocytes Percent Auto 11.6 % (18.3-44.2); Mean Corpuscular HGB Conc 28.8 g/dl (32-36); Mean Corpuscular Hemoglobin 26.7 pg (26-34); Mean Corpuscular Volume 92.6 fl (80-100); Monocytes Absolute Auto 0.3 K/mm3 (0.1-0.6); Monocytes Percent Auto 3.8 % (2.6-8.5); Neutrophils Absolute Auto 6.5 K/mm3 (1.3-6.7); Neutrophils Percent Auto 82.4 % (45.5-73.1); Platelet Count Result 228 k/mm3 (150-375); Red Blood Count 4.57 M/mm3 (4.2-5.4); Red Cell Distribution Width 13.4 % (11.5-14.5); White Blood Count 7.8 K/mm3 (4.5-10.0)
[2021-12-24 12:08] LABS: Alanine Aminotransferase 16 U/L (6-35); Albumin Level 4.1 g/dL (3.5-5.1); Alkaline Phosphatase 106 U/L (38-126); Anion Gap 7 mmol/L (8-16); Aspartate Amino Transferase 19 U/L (14-36); Bilirubin,Total 0.5 mg/dL (0.2-1.3); Blood Urea Nitrogen 11 mg/dL (7-17); Carbon Dioxide 37 mmol/L (22-30); Chloride 94 mmol/L (98-107); Cholesterol 205 mg/dL (0-200); Estimated Glomerular Filt Rate > 60; Glucose 100 mg/dL (65-110); HDL Direct 62 mg/dL; Potassium 3.9 mmol/L (3.4-5.0); Sodium 138 mmol/L (137-145); Triglycerides 135 mg/dL (<150)
[2021-12-24 12:14] LABS: Hemoglobin A1C 5.1 % (<5.7)
[2021-12-24 12:19] LABS: LDL Cholesterol Direct 99 mg/dL
[2021-12-24 12:27] LABS: Free T4 Free Thyroxine 1.39 ng/mL (0.78-2.19)
[2021-12-24 12:38] LABS: Thyroid Stimulating Hormone 0.032 uIU/mL (0.465-4.680); Total Triiodothyronine (T3) 0.97 NG/ML (0.97-1.69)
[2021-12-24 14:04] LABS: Hypochromasia 1+ (NORMAL); Platelet Estimate Adequate (Adequate); Schistocytes None Seen (NORMAL)
== END 2021-12-24 11:04 | disposition home or self-care (01) ==
PROVIDERS: PCP Family Medicine; Visit Provider Nurse Practitioner Gerontology
DX: E03.9 Hypothyroidism, unspecified (principal); E78.2 Mixed hyperlipidemia; I10 Essential (primary) hypertension; J96.12 Chronic respiratory failure with hypercapnia; R73.9 Hyperglycemia, unspecified; R73.01 Impaired fasting glucose
CPT/HCPCS: 36415; 80053; 80061; 83036; 84439; 84443; 84480; 85025

== ENCOUNTER 2022-01-12 12:13 | Outpatient (CLI) | payer MEDICARE, OTHER, SELFPAY ==
--- NOTE | ~2022-01-12 | CT_ITS ---
EXAMINATION:CT lung screening DATE: 01/12/2022 13:26 INDICATION: Tobacco use. Smoker who quit 10 years ago with 40 pack year history. TECHNIQUE: Computed tomography (CT) of the chest was performed without intravenous contrast. Automate d exposure control and iterative reconstruction technique were employed. The dose-length product (DLP ) was 116.32 mGy-cm. COMPARISON: Chest CT 05/15/2020, 01/04/19 FINDINGS: There is moderate emphysema. There is mild atelectasis bilaterally. Calcified pulmonary nod ules and calcified hilar and mediastinal lymph nodes are consistent with old granulomatous disease. T here is a chronic 3 mm nodule left upper lobe. There is a 9 mm nodule in lingula, stable from 01/05/20. No pleural effusion. The heart size is normal. There are coronary artery calcifications. No peric ardial effusion. There is thoracic dextroscoliosis and moderate spondylosis. IMPRESSION: 1. Lung-RADS category 2: Benign appearance or behavior. Continue annual screening with noncontrast lo w-dose chest CT in 12 months. Reviewed, dictated and finalized at location A. IMPRESSION: 1. Lung-RADS category 2: Benign appearance or behavior. Continue annual screeni ng with noncontrast low-dose chest CT in 12 months.
[2022-01-12 12:20] VITALS: PULSE 73; O2SAT 87
[2022-01-12 12:23] VITALS: PULSE 82; O2SAT 86
[2022-01-12 12:25] VITALS: PULSE 85; O2SAT 91
[2022-01-12 12:30] VITALS: PULSE 85; O2SAT 87
[2022-01-12 12:35] VITALS: PULSE 85; O2SAT 93
[2022-01-12 12:50] VITALS: PULSE 88; O2SAT 90
--- NOTE | 2022-01-12 13:16 | HOMEO2EVAL ---
Evaluation was performed at [facility]
--- NOTE | 2022-01-12 13:20 | HOMEO2EVAL ---
Evaluation was performed at [facility] Home Oxygen Evaluation 01/12/22 13:16 Home Oxygen Evaluation by Lor Jordan Evaluation was performed at [facility] Initialized on 01/12/22 13:16 - END OF NOTE
--- NOTE | 2022-01-12 13:59 | HOMEO2EVAL ---
Evaluation was performed at [facility] Home Oxygen Evaluation RC: Home Oxygen (O2) Evaluation Start: 01/12/22 13:05 Freq: Status: Active Protocol: RPE Activity Type Activity Date Activity User E-sign Co-sign Detail Recorded Client Recorded Date Recorded By Document 01/12/22 12:20 [email or web address] 01/12/22 13:15 PKH Document 01/12/22 12:23 [email or web address] 01/12/22 13:15 PKH Document 01/12/22 12:25 [email or web address] [email or web address] 01/12/22 13:15 PKH Document 01/12/22 12:30 [email or web address] 01/12/22 13:15 PKH Document 01/12/22 12:35 [email or web address] [email or web address] 01/12/22 13:15 PKH Document 01/12/22 12:50 [email or web address] [email or web address] 01/12/22 13:15 PKH Document 01/12/22 12:55 [email or web address] [email or web address] 01/12/22 13:52 PKH 01/12/22 01/12/22 01/12/22 12:20 12:23 12:25 Home O2 Evaluation [Oxygen] -Test Phase Resting Resting Resting -Oxygen Delivery Room Air Nasal Cannula Nasal Cannula -Oxygen Flow Rate (L/min) 1 2 [Pulse Oximetry] -Pulse Oximetry (90-100 %) 87 L 86 L 91 [Pulse Rate] -Pulse Rate (60-100 beats/min) 73 82 85 [Evaluation] -Activity Tolerance [Exercise] -Ambulation Distance (feet) -Ambulation Distance (meters) [Comments] -Home Oxygen Evaluation Comments [Charges] -Treatment Charges O2 Evaluation - Outpatient 01/12/22 01/12/22 01/12/22 12:30 12:35 12:50 Home O2 Evaluation [Oxygen] -Test Phase Exercise Exercise Resting -Oxygen Delivery Nasal Cannula Nasal Cannula -Oxygen Flow Rate (L/min) 2 3 2 [Pulse Oximetry] -Pulse Oximetry (90-100 %) 87 L 93 90 [Pulse Rate] -Pulse Rate (60-100 beats/min) 85 85 88 [Evaluation] -Activity Tolerance Good Good [Exercise] -Ambulation Distance (feet) 300 -Ambulation Distance (meters) 91.43 [Comments] -Home Oxygen Evaluation Comments [Charges] -Treatment Charges 01/12/22 12:55 Home O2 Evaluation [Oxygen] -Test Phase -Oxygen Delivery -Oxygen Flow Rate (L/min) [Pulse Oximetry] -Pulse Oximetry (90-100 %) [Pulse Rate] -Pulse Rate (60-100 beats/min) [Evaluation] -Activity Tolerance [Exercise] -Ambulation Distance (feet) -Ambulation Distance (meters) [Comments] -Home Oxygen Evaluation Comments PATIENT REQUIRES 2LPM WITH REST AND 3LPM WITH ACTIVITY. [Charges] -Treatment Charges
== END 2022-01-12 12:14 | disposition home or self-care (01) ==
LOC: ANHPFT 12:14
PROVIDERS: PCP Family Medicine; Visit Provider Nurse Practitioner Family
DX: Z12.2 Encounter for screening for malignant neoplasm of respiratory organs (principal); Z87.891 Personal history of nicotine dependence
CPT/HCPCS: 71271; 94618

== ENCOUNTER 2022-02-24 12:24 | Outpatient (CLI) | payer MEDICARE, OTHER, SELFPAY ==
[2022-02-24 13:10] LABS: Free T4 Free Thyroxine 1.92 ng/mL (0.78-2.19)
[2022-02-24 13:26] LABS: Thyroid Stimulating Hormone 0.652 uIU/mL (0.465-4.680); Total Triiodothyronine (T3) 1.15 NG/ML (0.97-1.69)
== END 2022-02-24 12:25 | disposition home or self-care (01) ==
LOC: ANHLAB 12:27
PROVIDERS: PCP Family Medicine; Visit Provider Family Medicine
DX: E03.9 Hypothyroidism, unspecified (principal)
CPT/HCPCS: 36415; 84439; 84443; 84480

== ENCOUNTER 2022-12-09 15:40 | Outpatient (CLI) | payer MEDICARE, OTHER, SELFPAY ==
[2022-12-09 16:17] LABS: Basophils Absolute Auto 0.1 K/mm3 (0.0-0.1); Eosinophils Absolute Auto 0.2 K/mm3 (0-0.3); Eosinophils Percent Auto 2.4 % (0-4.4); Hematocrit 46.7 % (37.0-47.0); Hemoglobin 13.3 g/dL (12.0-15.0); Immature Granulocyte Absolute 0.02 K/mm3 (0.00-0.031); Immature Granulocyte Percent A 0.3 % (0-0.5); Lymphocytes Absolute Auto 0.96 K/mm3 (0.9-3.2); Lymphocytes Percent Auto 13.5 % (18.3-44.2); Mean Corpuscular HGB Conc 28.5 g/dl (32-36); Mean Corpuscular Hemoglobin 26.7 pg (26-34); Mean Corpuscular Volume 93.6 fl (80-100); Mean Platelet Volume 10.2 fl (7.4-10.4); Monocytes Absolute Auto 0.3 K/mm3 (0.1-0.6); Monocytes Percent Auto 4.2 % (2.6-8.5); Neutrophils Absolute Auto 5.6 K/mm3 (1.3-6.7); Neutrophils Percent Auto 78.6 % (45.5-73.1); Platelet Count Result 271 k/mm3 (150-375); Red Blood Count 4.99 M/mm3 (4.2-5.4); Red Cell Distribution Width 13.8 % (11.5-14.5); White Blood Count 7.1 K/mm3 (4.5-10.0)
[2022-12-09 16:38] LABS: Anisocytosis 1+ (NORMAL); Hypochromasia 1+ (NORMAL); Ovalocytes 1+ (NORMAL); Platelet Estimate Adequate (Adequate); Schistocytes None Seen (NORMAL)
[2022-12-09 16:40] LABS: Alanine Aminotransferase 41 U/L (6-35); Albumin Level 4.7 g/dL (3.5-5.1); Alkaline Phosphatase 131 U/L (38-126); Aspartate Amino Transferase 40 U/L (14-36); Bilirubin,Total 0.6 mg/dL (0.2-1.3); Blood Urea Nitrogen 20 mg/dL (7-17); Calcium 9.2 mg/dL (8.4-10.2); Carbon Dioxide > 40 mmol/L (22-30); Chloride 93 mmol/L (98-107); Cholesterol 298 mg/dL (0-200); Estimated Glomerular Filt Rate > 60; Glucose 102 mg/dL (65-110); HDL Direct 77 mg/dL; LDL Cholesterol Direct 166 mg/dL; Potassium 4.8 mmol/L (3.4-5.0); Sodium 139 mmol/L (137-145); Triglycerides 132 mg/dL (<150)
== END 2022-12-09 15:41 | disposition home or self-care (01) ==
LOC: ANHLAB 15:44
PROVIDERS: PCP Family Medicine; Visit Provider Physician Assistant
DX: E03.9 Hypothyroidism, unspecified (principal); E78.2 Mixed hyperlipidemia; I10 Essential (primary) hypertension
CPT/HCPCS: 36415; 80053; 80061; 84443; 85025

== ENCOUNTER 2023-03-17 13:07 | Outpatient (CLI) | payer MEDICARE, OTHER, SELFPAY ==
[2023-03-17 14:20] LABS: Alanine Aminotransferase 11 U/L (6-35); Albumin Level 4.2 g/dL (3.5-5.1); Alkaline Phosphatase 77 U/L (38-126); Aspartate Amino Transferase 18 U/L (14-36); Bilirubin,Total 0.6 mg/dL (0.2-1.3); Blood Urea Nitrogen 15 mg/dL (7-17); Calcium 8.7 mg/dL (8.4-10.2); Carbon Dioxide > 40 mmol/L (22-30); Chloride 93 mmol/L (98-107); Estimated Glomerular Filt Rate > 60; Glucose 100 mg/dL (65-110); Potassium 4.6 mmol/L (3.4-5.0); Sodium 139 mmol/L (137-145)
== END 2023-03-17 13:08 | disposition home or self-care (01) ==
PROVIDERS: PCP Family Medicine; Visit Provider Physician Assistant
DX: R74.8 Abnormal levels of other serum enzymes (principal)
CPT/HCPCS: 36415; 80053

== ENCOUNTER 2023-04-07 08:14 | Outpatient (CLI) | payer MEDICARE, OTHER, SELFPAY ==
[2023-04-07 08:30] VITALS: PULSE 87; O2SAT 87
[2023-04-07 08:31] VITALS: O2SAT 91
[2023-04-07 08:33] VITALS: PULSE 109; O2SAT 86
[2023-04-07 08:34] VITALS: O2SAT 89
[2023-04-07 08:35] VITALS: PULSE 108; O2SAT 91
[2023-04-07 08:45] VITALS: PULSE 92; O2SAT 93
--- NOTE | 2023-04-07 12:04 | HOMEO2EVAL ---
Evaluation was performed at [facility] Home Oxygen Evaluation RC: Home Oxygen (O2) Evaluation Start: 04/07/23 12:01 Freq: Status: Active Protocol: RPE Activity Type Activity Date Activity User E-sign Co-sign Detail Recorded Client Recorded Date Recorded By Document 04/07/23 08:30 [email or web address] 04/07/23 12:04 UCHE Document 04/07/23 08:31 [email or web address] [email or web address] 04/07/23 12:04 UCHE Document 04/07/23 08:33 [email or web address] [email or web address] 04/07/23 12:04 UCHE Document 04/07/23 08:34 [email or web address] [email or web address] 04/07/23 12:04 UCHE Document 04/07/23 08:35 [email or web address] [email or web address] 04/07/23 12:04 UCHE Document 04/07/23 08:45 [email or web address] [email or web address] 04/07/23 12:04 UCHE 04/07/23 04/07/23 04/07/23 08:30 08:31 08:33 Home O2 Evaluation [Oxygen] -Test Phase Resting Resting Exercise -Oxygen Delivery Room Air Nasal Cannula Nasal Cannula -Oxygen Flow Rate (L/min) 2 2 [Pulse Oximetry] -Pulse Oximetry (90-100 %) 87 L 91 86 L [Pulse Rate] -Pulse Rate (60-100 beats/min) 87 109 H [Comments] -Home Oxygen Evaluation Comments [Charges] -Evaluation Charges O2 Evaluation by Pulmonary 04/07/23 04/07/23 04/07/23 08:34 08:35 08:45 Home O2 Evaluation [Oxygen] -Test Phase Exercise Exercise Resting -Oxygen Delivery Nasal Cannula Nasal Cannula Nasal Cannula -Oxygen Flow Rate (L/min) 3 4 2 [Pulse Oximetry] -Pulse Oximetry (90-100 %) 89 L 91 93 [Pulse Rate] -Pulse Rate (60-100 beats/min) 108 H 92 [Comments] -Home Oxygen Evaluation Comments Pt requires 2 liters home o2 at rest and 4 liters with exertion [Charges] -Evaluation Charges
== END 2023-04-07 08:15 | disposition home or self-care (01) ==
PROVIDERS: PCP Family Medicine; Visit Provider Physician Assistant
DX: J43.2 Centrilobular emphysema (principal); G47.33 Obstructive sleep apnea (adult) (pediatric)
CPT/HCPCS: 94618

== ENCOUNTER 2023-04-14 08:45 | Outpatient (CLI) | payer MEDICARE, OTHER, SELFPAY ==
--- NOTE | 2023-05-05 19:34 | WPDSLEEPSTUD ---
Sleep Study Date of Study: 04/14/23 Ordering Provider: HUEY Richardson Interpreting Physician: Mckayla Douglas MD Sleep Study Type: BiPAP Titration Height: 1.57 m Weight: 83.915 kg Body Mass Index: 33.8 Neck Circumference (inches): 13 [place]: 10 Reason for Sleep Study Obstructive sleep apnea with COPD, hypercapnic hypoxemic respiratory failure on home oxygen 2 L at rest and 4 L with exertion Long history of obstructive sleep apnea, poor quality sleep; recently has worn BiPAP 15/10 in late Mar/early April w improved daytime function, usually non-complaint much of the time until recently before her April 08 pulmonary visit Sleep History Candida Luz is a 73-year-old woman with a history of obstructive sleep apnea and COPD. She has difficulty at night due to multile awakeneings with difficulty returning to sleep. She has excessive daytime sleepiness. She occasionally awakens from sleep short of breath. She rarely wakes at night with heartburn, belching or coughing.??She frequently snores, rarely snores loudly enough that others complain. She rarely has trouble sleeping when she has a cold. She occasionally wakes up gasping for breath during the night. She occasionally has breathing problems at night. She rarely sweats excessively at night. She rarely notices her heart pounding or beating irregularly during the night. She occasionally falls asleep during the day. She rarely falls asleep involuntarily, never falls asleep while driving. She never experiences loss of muscle tone with strong emotion. She never feels paralyzed on waking or falling asleep. She never experiences vivid dreams upon waking or falling asleep. She never feels afraid of going to sleep. She never has nightmares. She occasionally recalls her dreams. She never has thoughts racing through her mind. She rarely feels sad or depressed. She occasionally feels anxiety. She rarely notices parts of her body jerk. She occasionally kicks during the night. She rarely feels crawling or aching feelings in her legs. She rarely feels leg pain at night. She rarely has morning jaw pain, and occasionally grinds her teeth at night. She occasionally feels bothered by pain during the day, is rarely awakened by pain during the night. She rarely wakes up feeling stiff in the morning, rarely wakes feeling sore or achy in the morning. She rarely awakens with pain in her neck, spine, or joints. On the sleep questionnaire, she reported that her normal bedtime is between 6:00 p.m. and 10:00 p.m., falling asleep within 5 minutes, waking various times during the night. She estimates getting between 6 and 8 hours of interrupted sleep at night. She spends much time in bed after she has finished sleeping for the night. She takes naps in the afternoon or evening but a short nap lasting 10-15 minutes is not at all refreshing. She has fatigue, memory problems and episodes of feeling panicky. Habits:??Tobacco - former smoker, smoked multiple packs per day, quit in 2011. [facility] Past Medical History Medical History (Updated 05/05/23 @ 20:18 by Mckayla Douglas MD) Acquired hypothyroidism Acute blood loss anemia Adenomatous colon polyp Allergic rhinitis Benign essential HTN Chronic diastolic congestive heart failure Chronic hypoxemic respiratory failure Chronic obstructive pulmonary disease, unspecified Chronic respiratory failure with hypercapnia Chronic respiratory failure with hypoxia Compliance poor Constipation by delayed colonic transit Difficulty in walking, not elsewhere classified Diverticulitis SAKSHI (generalized anxiety disorder) History of fracture of patella History of tobacco abuse History of torn meniscus of right knee IFG (impaired fasting glucose) Left ear pain MDD (major depressive disorder), recurrent episode, moderate Mixed hyperlipidemia Morbid (severe) obesity due to excess calories Obstructive sleep apnea (adult) (pediatric) Other abnormalities of gait and mobi
[2023-05-05 19:35] VITALS: BMI 33.8
== END 2023-04-15 07:35 | disposition home or self-care (01) ==
LOC: ANHCSM 08:46
PROVIDERS: PCP Family Medicine; Visit Provider Physician Assistant
DX: G47.33 Obstructive sleep apnea (adult) (pediatric) (principal); G47.61 Periodic limb movement disorder
CPT/HCPCS: 95811

== ENCOUNTER 2023-07-01 13:45 | Outpatient (CLI) | payer MEDICARE, OTHER, SELFPAY ==
[2023-07-01 14:34] LABS: Alveolar/Arterial O2 Gradient 110.4 mmHg; Fractional Inspired Oxygen 36 %; Oxygen Saturation ABG 91.8 % (95.0-100.0); Oxyhemoglobin 92.7 % THb (90.0-100.0); PO2 ABG 66.2 mmHg (80.0-100.0); PO2 FiO2 Ratio Arterial Blood 1.84 %
[2023-07-01 14:39] LABS: Device NASAL CANNULA; Modified Allen's Test Pass; Site Drawn RIGHT RADIAL
== END 2023-07-01 13:46 | disposition home or self-care (01) ==
PROVIDERS: PCP Family Medicine; Visit Provider Physician Assistant
DX: J96.12 Chronic respiratory failure with hypercapnia (principal)
CPT/HCPCS: 36600; 82805

== ENCOUNTER 2023-08-24 12:29 | Outpatient (CLI) | payer MEDICARE, OTHER, SELFPAY ==
[2023-08-24 13:15] LABS: Alveolar/Arterial O2 Gradient 101.7 mmHg; Base Excess ABG 8.7 mEq/l (+/-2.0); Fractional Inspired Oxygen 32 %; HCO3 ABG 34.6 mEq/l (22.0-26.0); Methemoglobin ABG 0.3 %THb (0-1.5); Oxygen Saturation ABG 92.6 % (95.0-100.0); Oxyhemoglobin 91.7 % THb (90.0-100.0); PCO2 ABG 53.4 mmHg (35.0-45.0); Total Hemoglobin 12.4 g/dL (12.0-18.0); pH ABG 7.429 (7.350-7.450)
[2023-08-24 13:20] LABS: Device NASAL CANNULA; Modified Allen's Test Pass; Site Drawn RIGHT RADIAL
--- NOTE | 2023-08-24 13:40 | PCRCNOTE ---
ABG COMPLETE RIGHT RADIAL, PATIENT STATES THAT RIGHT THUMB PALM WAS HURTING. PATIENT WAS ABLE TO MOVE HAND AND NO TINGLING, ISSUES WITH DEXTERITY OR NUMBNESS WAS PRESENT. PAIN HAD RESOLVED PRIOR TO LEAVING.
== END 2023-08-24 12:30 | disposition home or self-care (01) ==
LOC: ANHPFT 12:30
PROVIDERS: PCP Family Medicine; Visit Provider Physician Assistant
DX: J96.11 Chronic respiratory failure with hypoxia (principal); J96.12 Chronic respiratory failure with hypercapnia
CPT/HCPCS: 36600; 82375; 82805; 83050